=== PATIENT | male | born 1995 | race Caucasian/White ===

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

== ENCOUNTER → 2019-07-23 | Day surgery (SDC) | payer OTHER ==
[~2019-07-23] VITALS: Ht 185.4 cm; Wt 144.9 kg
[~2019-07-23] MED LIST: AMPICILLIN SOD/SULBACTAM SOD 3 GM in D5W MINI-BAG PLUS 100 ML IV ONE; GABA800T4 PO; LIDOCAINE 2% INJ 100 MG/5 ML SDV (FOR ANES.) As Ordered ONE; LISI10TA4 PO; LR 1,000 ML IV ONE; MIDAZOLAM INJ 2 MG/2 ML VIAL (J2250) As Ordered ONE; ONDANSETRON 4MG/2ML VIAL (J2405) As Ordered ONE; PROPOFOL 200 MG/20 ML VIAL As Ordered ONE; ROCURONIUM BROMIDE 50 MG/5 ML VIAL As Ordered ONE; SUBO8MIS SL; TRAZ-189 PO; dexameTHASONE 4 MG/ML 1ML VIAL (J1100) As Ordered ONE; dexameTHASONE 4 MG/ML 1ML VIAL (J1100) IV ONE; fentaNYL 100 MCG/2 ML INJECTION (J3010) As Ordered ONE
[2019-07-23 10:15] VITALS: BP 172/90
== END | disposition home or self-care (01) ==
LOC: M SDC 09:37
PROVIDERS: ATTEND Dentist
DX: K02.9 Dental caries, unspecified (principal); Z53.29 Procedure and treatment not carried out because of patient's decision for other reasons

== ENCOUNTER 2022-01-12 16:20 | Inpatient (IN) | payer OTHER ==
[~2022-01-12 16:20] MED LIST changes: -AMPICILLIN SOD/SULBACTAM SOD 3 GM in D5W MINI-BAG PLUS 100 ML IV ONE; -LIDOCAINE 2% INJ 100 MG/5 ML SDV (FOR ANES.) As Ordered ONE; +LISI10TA22 PO; -LISI10TA4 PO; -LR 1,000 ML IV ONE; -MIDAZOLAM INJ 2 MG/2 ML VIAL (J2250) As Ordered ONE; -ONDANSETRON 4MG/2ML VIAL (J2405) As Ordered ONE; -PROPOFOL 200 MG/20 ML VIAL As Ordered ONE; -ROCURONIUM BROMIDE 50 MG/5 ML VIAL As Ordered ONE; -dexameTHASONE 4 MG/ML 1ML VIAL (J1100) As Ordered ONE; -dexameTHASONE 4 MG/ML 1ML VIAL (J1100) IV ONE; -fentaNYL 100 MCG/2 ML INJECTION (J3010) As Ordered ONE
[2022-01-12 18:26] LABS: RSV AMPLIFICATION NEGATIVE (NEGATIVE)
[2022-01-12 18:53] LABS: AMPHETAMINES LEVEL URINE NEGATIVE (NEGATIVE); BARBITURATES URINE NEGATIVE (NEGATIVE); BENZODIAZEPINES URINE NEGATIVE (NEGATIVE); CANNABINOIDS URINE NEGATIVE (NEGATIVE); COCAINE METABOLITE URINE NEGATIVE (NEGATIVE); METHADONE URINE NEGATIVE (NEGATIVE); OPIATES URINE NEGATIVE (NEGATIVE); PHENCYCLIDINE URINE NEGATIVE (NEGATIVE)
[2022-01-12] MEDS ORDERED: OMEPRAZOLE 20MG CAP PO ONE (20:00)
[2022-01-12 20:07] LABS: HEMATOCRIT 47.7 % (42.0-52.0); HEMOGLOBIN 16.3 g/dl (13.5-17.5); MEAN CORPUSCULAR HEMOGLOBIN 29.6 pg (27.0-33.0); MEAN CORPUSCULAR HGB CONC 34.2 g/dl (32.0-36.5); MEAN CORPUSCULAR VOLUME 86.7 fl (80.0-96.0); PLATELET COUNT, AUTOMATED 196 10^3/uL (150-450); WHITE BLOOD COUNT 7.4 10^3/uL (4.0-10.0)
[2022-01-12 20:48] LABS: ACETAMINOPHEN LEVEL < 2.0 UG/ML (10.0-30.0); ALBUMIN 3.8 GM/DL (3.2-5.2); ALT/SGPT 89 U/L (12-78); BILIRUBIN,DIRECT < 0.1 MG/DL (0.0-0.2); BILIRUBIN,TOTAL 0.2 MG/DL (0.2-1.0); BLOOD UREA NITROGEN 19 MG/DL (7-18); CALCIUM LEVEL 9.1 MG/DL (8.5-10.1); CARBON DIOXIDE LEVEL 31 MEQ/L (21-32); CHLORIDE LEVEL 106 MEQ/L (98-107); CREATININE FOR GFR 0.91 MG/DL (0.70-1.30); ETHYL ALCOHOL (ETHANOL) < 0.003 % (0.000-0.010); GLOMERULAR FILTRATION RATE > 60.0 (>60); GLUCOSE, FASTING 100 MG/DL (70-100); POTASSIUM SERUM 4.6 MEQ/L (3.5-5.1); SALICYLATE LEVEL 3.2 MG/DL (5.0-30.0); SODIUM LEVEL 138 MEQ/L (136-145); TOTAL PROTEIN 7.5 GM/DL (6.4-8.2)
[2022-01-12] MEDS ORDERED: LISI20TA33 PO (20:56)
[2022-01-12] MEDS ORDERED: AMOX500C PO (20:56)
[2022-01-12] MEDS ORDERED: MECL-136 PO (20:56)
[2022-01-12] MEDS ORDERED: HYDR12CA PO (20:56)
[2022-01-12] MEDS ORDERED: OMEP40CA5 PO (20:56)
[2022-01-12] MEDS ORDERED: GABAPENTIN 400MG CAP PO SCH (21:00)
[2022-01-12] MEDS ORDERED: HOME MED LIST COMPLETE! XX SCH (21:00)
[2022-01-12] MEDS ORDERED: traZODone 100 MG TAB PO SCH (21:00)
[2022-01-12] MEDS ORDERED: traZODone 50 MG TAB PO PRN (23:50)
[2022-01-12] MEDS ORDERED: MOM 30ML SUSPENSION UDC PO PRN (23:50)
[2022-01-13 02:18] VITALS: BP 181/86
[2022-01-13 02:50] VITALS: BP 130/80
[2022-01-13] MEDS ORDERED: BUPRENORPHINE/NALOXONE 8-2MG SUBLINGUAL TABLET(SUBOXONE) SL SCH (09:00)
[2022-01-13] MEDS ORDERED: OMEPRAZOLE 20MG CAP PO SCH (09:00)
[2022-01-13] MEDS ORDERED: BUPRENORPHINE HCL 8MG SUBINGUAL TABLET SL SCH (09:00)
[2022-01-13] MEDS: GABAPENTIN 400MG CAP PO SCH ×4 (10:22→23:21)
[2022-01-13] MEDS: BUPRENORPHINE/NALOXONE 8-2MG SUBLINGUAL TABLET(SUBOXONE) SL SCH (10:23)
[2022-01-13] MEDS: MECLIZINE 12.5 MG TAB PO SCH (10:51)
[2022-01-13] MEDS: hydroCHLOROthiazide 12.5 MG CAPSULE PO SCH (10:51)
[2022-01-13] MEDS: ACETAMINOPHEN TAB 650MG DOSE (2X325MG) PO PRN (13:59)
[2022-01-13] MEDS: NICOTINE 21MG/24HR 1 EA TRANSDERMAL TD SCH (15:43)
[2022-01-13 16:42] VITALS: BP 153/68
[2022-01-13] MEDS: OLANZapine ORAL DISINTEGRATING TAB 5MG PO PRN (17:50)
[2022-01-13] MEDS: OLANZapine 5 MG TAB PO SCH ×2 (21:00→23:21)
[2022-01-13] MEDS: traZODone 100 MG TAB PO SCH ×2 (21:00→23:21)
[2022-01-14 06:39] VITALS: BP 115/55
[2022-01-14] MEDS: AMOXICILLIN 500 MG CAP PO SCH ×3 (09:00→21:34)
[2022-01-14] MEDS: BUPRENORPHINE/NALOXONE 8-2MG SUBLINGUAL TABLET(SUBOXONE) SL SCH (09:03)
[2022-01-14] MEDS: GABAPENTIN 400MG CAP PO SCH ×3 (09:04→21:34)
[2022-01-14] MEDS: NICOTINE 21MG/24HR 1 EA TRANSDERMAL TD SCH (09:04)
[2022-01-14] MEDS: hydroCHLOROthiazide 12.5 MG CAPSULE PO SCH (09:04)
[2022-01-14] MEDS: MECLIZINE 12.5 MG TAB PO SCH (09:04)
[2022-01-14] MEDS: OLANZapine ORAL DISINTEGRATING TAB 5MG PO PRN (13:18)
[2022-01-14 16:26] VITALS: BP 116/59
[2022-01-14] MEDS: traZODone 100 MG TAB PO SCH (21:35)
[2022-01-14] MEDS: OLANZapine 5 MG TAB PO SCH (21:35)
[2022-01-15 06:45] VITALS: BP 126/61
[2022-01-15] MEDS: ACETAMINOPHEN TAB 650MG DOSE (2X325MG) PO PRN (07:20)
[2022-01-15] MEDS: MECLIZINE 12.5 MG TAB PO SCH (09:18)
[2022-01-15] MEDS: AMOXICILLIN 500 MG CAP PO SCH ×3 (09:18→21:20)
[2022-01-15] MEDS: hydroCHLOROthiazide 12.5 MG CAPSULE PO SCH (09:18)
[2022-01-15] MEDS: BUPRENORPHINE/NALOXONE 8-2MG SUBLINGUAL TABLET(SUBOXONE) SL SCH (09:19)
[2022-01-15] MEDS: GABAPENTIN 400MG CAP PO SCH ×3 (09:19→21:20)
[2022-01-15] MEDS: NICOTINE 21MG/24HR 1 EA TRANSDERMAL TD SCH (09:19)
[2022-01-15] MEDS: OLANZapine ORAL DISINTEGRATING TAB 5MG PO PRN (12:34)
[2022-01-15 18:25] VITALS: BP 121/65
[2022-01-15] MEDS: OLANZapine 10 MG TAB PO SCH (21:20)
[2022-01-15] MEDS: traZODone 100 MG TAB PO SCH (21:20)
[2022-01-16 07:06] VITALS: BP 112/70
[2022-01-16] MEDS: BUPRENORPHINE/NALOXONE 8-2MG SUBLINGUAL TABLET(SUBOXONE) SL SCH (08:42)
[2022-01-16] MEDS: MECLIZINE 12.5 MG TAB PO SCH (08:43)
[2022-01-16] MEDS: GABAPENTIN 400MG CAP PO SCH ×3 (08:43→20:54)
[2022-01-16] MEDS: hydroCHLOROthiazide 12.5 MG CAPSULE PO SCH (08:43)
[2022-01-16] MEDS: NICOTINE 21MG/24HR 1 EA TRANSDERMAL TD SCH (08:43)
[2022-01-16] MEDS: AMOXICILLIN 500 MG CAP PO SCH ×3 (08:43→20:54)
[2022-01-16] MEDS: OLANZapine ORAL DISINTEGRATING TAB 5MG PO PRN ×2 (09:36→15:46)
[2022-01-16] MEDS: SENNA 8.6 MG TAB (SENOKOT) PO PRN (11:46)
[2022-01-16] MEDS: ACETAMINOPHEN TAB 650MG DOSE (2X325MG) PO PRN (12:55)
[2022-01-16 17:56] VITALS: BP 142/69
[2022-01-16] MEDS: OLANZapine 10 MG TAB PO SCH (20:54)
[2022-01-16] MEDS: traZODone 100 MG TAB PO SCH (20:54)
[2022-01-17] MEDS: OLANZapine ORAL DISINTEGRATING TAB 5MG PO PRN ×3 (06:46→21:51)
[2022-01-17 07:11] VITALS: BP 159/91
[2022-01-17] MEDS: MAALOX 30 ML SUSP *UDC PO PRN ×2 (08:13→20:43)
[2022-01-17] MEDS: NICOTINE 21MG/24HR 1 EA TRANSDERMAL TD SCH (09:00)
[2022-01-17] MEDS: hydroCHLOROthiazide 12.5 MG CAPSULE PO SCH (09:44)
[2022-01-17] MEDS: BUPRENORPHINE/NALOXONE 8-2MG SUBLINGUAL TABLET(SUBOXONE) SL SCH (09:44)
[2022-01-17] MEDS: AMOXICILLIN 500 MG CAP PO SCH ×3 (09:44→20:42)
[2022-01-17] MEDS: GABAPENTIN 400MG CAP PO SCH ×3 (09:44→20:42)
[2022-01-17] MEDS: MECLIZINE 12.5 MG TAB PO SCH (09:44)
[2022-01-17] MEDS: ACETAMINOPHEN TAB 650MG DOSE (2X325MG) PO PRN (11:26)
[2022-01-17 18:00] VITALS: BP 142/78
[2022-01-17] MEDS: traZODone 100 MG TAB PO SCH (20:42)
[2022-01-17] MEDS: OLANZapine 10 MG TAB PO SCH (20:42)
[2022-01-18] MEDS: OLANZapine ORAL DISINTEGRATING TAB 5MG PO PRN ×2 (05:59→11:49)
[2022-01-18] MEDS: AMOXICILLIN 500 MG CAP PO SCH ×3 (08:07→20:22)
[2022-01-18] MEDS: GABAPENTIN 400MG CAP PO SCH ×3 (08:08→20:22)
[2022-01-18] MEDS: MECLIZINE 12.5 MG TAB PO SCH (08:08)
[2022-01-18] MEDS: BUPRENORPHINE/NALOXONE 8-2MG SUBLINGUAL TABLET(SUBOXONE) SL SCH (08:08)
[2022-01-18] MEDS: hydroCHLOROthiazide 12.5 MG CAPSULE PO SCH (08:08)
[2022-01-18] MEDS: NICOTINE 21MG/24HR 1 EA TRANSDERMAL TD SCH (08:08)
[2022-01-18] MEDS: MAALOX 30 ML SUSP *UDC PO PRN (10:01)
[2022-01-18] MEDS: NICOTINE POLACRILEX 2 MG GUM PO PRN ×2 (14:36→20:22)
[2022-01-18 15:37] VITALS: BP 160/90
[2022-01-18] MEDS: SENNA 8.6 MG TAB (SENOKOT) PO PRN (18:00)
[2022-01-18] MEDS: OLANZapine 10 MG TAB PO SCH (20:22)
[2022-01-18] MEDS: traZODone 100 MG TAB PO SCH (20:22)
[2022-01-19] MEDS: NICOTINE POLACRILEX 2 MG GUM PO PRN ×4 (06:31→19:12)
[2022-01-19] MEDS: OLANZapine ORAL DISINTEGRATING TAB 5MG PO PRN ×4 (06:31→22:29)
[2022-01-19 06:40] VITALS: BP 140/84
[2022-01-19] MEDS: ACETAMINOPHEN TAB 650MG DOSE (2X325MG) PO PRN (07:48)
[2022-01-19] MEDS: GABAPENTIN 400MG CAP PO SCH ×3 (08:29→20:32)
[2022-01-19] MEDS: MECLIZINE 12.5 MG TAB PO SCH (08:29)
[2022-01-19] MEDS: hydroCHLOROthiazide 12.5 MG CAPSULE PO SCH (08:29)
[2022-01-19] MEDS: BUPRENORPHINE/NALOXONE 8-2MG SUBLINGUAL TABLET(SUBOXONE) SL SCH (08:29)
[2022-01-19] MEDS: MAALOX 30 ML SUSP *UDC PO PRN ×2 (08:56→19:20)
[2022-01-19 19:05] VITALS: BP 138/86
[2022-01-19] MEDS: OLANZapine 10 MG TAB PO SCH (20:32)
[2022-01-19] MEDS: traZODone 100 MG TAB PO SCH (20:32)
[2022-01-19 20:33] VITALS: BP 131/61
[2022-01-20] MEDS: NICOTINE POLACRILEX 2 MG GUM PO PRN ×2 (04:31→11:15)
[2022-01-20 06:21] VITALS: BP 144/87
[2022-01-20] MEDS: OLANZapine ORAL DISINTEGRATING TAB 5MG PO PRN (06:39)
[2022-01-20] MEDS: MAALOX 30 ML SUSP *UDC PO PRN (07:14)
[2022-01-20] MEDS: hydroCHLOROthiazide 12.5 MG CAPSULE PO SCH (08:24)
[2022-01-20] MEDS: GABAPENTIN 400MG CAP PO SCH (08:24)
[2022-01-20] MEDS: MECLIZINE 12.5 MG TAB PO SCH (08:24)
[2022-01-20] MEDS ORDERED: MECL-136 PO (08:29)
[2022-01-20] MEDS ORDERED: GABA800T4 PO (08:29)
[2022-01-20] MEDS ORDERED: TRAZ-189 PO (08:29)
[2022-01-20] MEDS ORDERED: OMEP40CA5 PO (08:29)
[2022-01-20] MEDS ORDERED: LISI20TA33 PO (08:29)
[2022-01-20] MEDS ORDERED: HYDR12CA PO (08:29)
[2022-01-20] MEDS: BUPRENORPHINE/NALOXONE 8-2MG SUBLINGUAL TABLET(SUBOXONE) SL SCH (08:32)
[2022-01-20] MEDS: ACETAMINOPHEN TAB 650MG DOSE (2X325MG) PO PRN (09:14)
== END 2022-01-20 13:02 | disposition home or self-care (01) | DRG 750 ==
LOC: M ED 16:20 → M ED INP 16:21 → M PSY 01-13 01:50
PROVIDERS: ADMIT Psychiatry & Neurology Psychiatry; ATTEND Psychiatry & Neurology Psychiatry
DX: F20.9 Schizophrenia, unspecified (principal); F15.159 Other stimulant abuse with stimulant-induced psychotic disorder, unspecified; F17.210 Nicotine dependence, cigarettes, uncomplicated; Z91.038 Other insect allergy status; Z79.899 Other long term (current) drug therapy; Z20.822 Contact with and (suspected) exposure to COVID-19

== ENCOUNTER 2022-07-10 05:25 | Emergency (ER) | payer OTHER ==
[~2022-07-10] VITALS: Ht 182.9 cm; Wt 150.0 kg
[2022-07-10 05:25] VITALS: BP 136/80
[~2022-07-10 05:25] MED LIST changes: +AMOX500C PO; +HYDR12CA PO; +LISI20TA33 PO; +MECL-136 PO; +OMEP40CA5 PO
== END 2022-07-10 13:30 | disposition left against medical advice (07) ==
LOC: M ED 05:25
DX: Z53.29 Procedure and treatment not carried out because of patient's decision for other reasons (principal)

== ENCOUNTER 2022-08-09 17:02 | Emergency (ER) | payer OTHER ==
[~2022-08-09] VITALS: Ht 182.9 cm; Wt 153.0 kg
[2022-08-09 17:03] VITALS: BP 164/84
[2022-08-09] MEDS ORDERED: FLUT15.820 (17:13)
[2022-08-09] MEDS ORDERED: LITH300C (17:13)
[2022-08-09] MEDS ORDERED: LEVO50TA5 (17:13)
[2022-08-09] MEDS ORDERED: ABIL1INJ2 (17:13)
== END 2022-08-09 20:05 | disposition left against medical advice (07) ==
LOC: M ED 17:02
DX: Z53.21 Procedure and treatment not carried out due to patient leaving prior to being seen by health care provider (principal)